=== PATIENT | male | born 1990 | race Caucasian/White ===

== ENCOUNTER 2021-02-14 10:09 | Emergency (ER) | payer BC ==
--- NOTE | 2021-02-14 11:04 | EDM.PDOC ---
ED HPI GENERAL MEDICAL PROBLEM - General Chief Complaint: Laceration Stated Complaint: laceration left thumb Time Seen by Provider: 02/14/21 10:52 Source of Information: Reports: Patient - History of Present Illness INITIAL COMMENTS - FREE TEXT/NARRATIVE: Rick is a 30 y/o male who comes to the ER after cutting his left thumb on a fishing lure that he was tying up. No other injuries. Last tetanus was about a year ago. - Related Data Allergies Allergy/AdvReac Type Severity Reaction Status Date / Time No Known Allergies Allergy Verified 02/14/21 10:12 Home Meds: Home Meds . [No Known Home Meds] 02/14/21 [History] Past Medical History Gastrointestinal History: Reports: GERD Musculoskeletal History: Reports: Fracture Neurological History: Reports: Concussion Social & Family History - Tobacco Use Tobacco Use Status *Q: Never Tobacco User - Caffeine Use Caffeine Use: Reports: Coffee, Energy Drinks - Recreational Drug Use Recreational Drug Use: No ED ROS GENERAL - Review of Systems Review Of Systems: See Below Constitutional: Reports: No Symptoms HEENT: Reports: No Symptoms Respiratory: Reports: No Symptoms Cardiovascular: Reports: No Symptoms Endocrine: Reports: No Symptoms GI/Abdominal: Reports: No Symptoms : Reports: No Symptoms Musculoskeletal: Reports: No Symptoms Skin: Reports: Wound (Left thumb) ED EXAM, SKIN/RASH Exam: See Below General Appearance: Alert, WD/WN, No Apparent Distress (Adult male) Ears: Hearing Grossly Normal Head: Atraumatic, Normocephalic Respiratory/Chest: No Respiratory Distress Cardiovascular: Regular Rate, Rhythm GI/Abdominal: Soft (Male) Exam: Deferred Rectal (Males) Exam: Deferred Extremities: Normal Range of Motion, Normal Capillary Refill Neurological: Alert, Oriented, CN II-XII Intact, Normal Gait Psychiatric: Normal Affect Skin: Warm, Dry, Intact, Normal Color Location, Skin: Upper Extremity, Left (Note small avulsion type laceration about 0.5cm on distal part of left thumb, mildly bleeding. Bleeding controllde with pressure, but then starts again when pressure released.) Course - Vital Signs Text/Narrative:: The patient was seen by the [employer]. The laceration with not suturable. Gelfoam, gauze, and Coban applied to the left thumb after wound cleansed. Patient was given written discharge instructions and left the ER in stable condition. Last Recorded V/S: Last Vital Signs Temp 36.2 C 02/14/21 10:10 Pulse 90 02/14/21 10:10 Resp 18 02/14/21 10:10 BP 151/105 H 02/14/21 10:10 Pulse Ox 99 02/14/21 10:10 Departure - Departure Time of Disposition: 11:01 Disposition: Home, Self-Care 01 Condition: Good Clinical Impression: Thumb laceration Qualifiers: Encounter type: initial encounter Damage to nail status: without damage Foreign body presence: without foreign body Laterality: left Qualified Code(s): S61.012A - Laceration without foreign body of left thumb without damage to nail, initial encounter - Discharge Information Instructions: Nonsutured Laceration Care Referrals: Jessica Man PA [Primary Care Provider] - Additional Instructions: -Dress the wound as needed with Gelfoam and dressing. -Keep the wound clean daily with soap and water and monitor for signs of infection. May apply Bacitracin to the wound over the next few days as needed. -May use ibuprofen or acetaminophen as needed for pain. -Follow up with your PCP or return to the ER for any concerns. Sepsis Event Note (ED) - Evaluation Sepsis Screening Result: No Definite Risk - Focused Exam Vital Signs: Vital Signs Temp Pulse Resp BP Pulse Ox 02/14/21 10:10 36.2 C 90 18 151/105 H 99 - Problem List & Annotations (1) Thumb laceration SNOMED Code(s): 735819247 Code(s): S61.019A - LACERATION W/O FOREIGN BODY OF THMB W/O DAMAGE TO NAIL, INIT Status: Acute Current Visit: Yes Annotation/Comment:: Not sutured. Wound dressed with Gel-Foam and dressing. Wound care reviewed. Qualifiers: Encounter type: initial encounter Damage to nail status: without damage Foreign body presence: without foreign body Laterality: left Qualified Code(s): S61.012A - Laceration without foreign body of left thumb without damage to nail, initial encounter - Problem List Review Problem List Initiated/Reviewed/Updated: Yes - Assessment/Plan Plan: As above
== END 2021-02-14 11:13 | disposition home or self-care (01) ==
LOC: LL.ED 10:09
DX: S61.012A Laceration without foreign body of left thumb without damage to nail, initial encounter (principal); W26.8XXA Contact with other sharp object(s), not elsewhere classified, initial encounter
CPT/HCPCS: 99282; 99283